=== PATIENT | female | born 1935 | race Caucasian/White ===

== ENCOUNTER 2016-10-09 11:22 | Inpatient (IN) | payer MEDICARE ==
[2016-10-09] VITALS (7 sets, daily range): BP systolic 145–174; BP diastolic 74–86
[~2016-10-09] VITALS: Ht 152 cm; Wt 75.0 kg
[~2016-10-09 11:22] MED LIST: ASPIRIN81 MG PO; ATENOLOL25 MG PO; CALCIUM WITH D1 CTB PO; CALCIUM600 M1 PO; CLARITIN10 MG; DOXYCYCLINE100 M3; FISH OIL 10001000 MG; FLAXSEED OIL1 CAP PO; FLONASE0.05 MG/AC; IMDUR SA30 MG PO; ISOSORBIDE30 MG PO; LOVENOX80 MG/0.8 SC; MACROBID100 M1 PO; NEURONTIN300 MG PO; OCEAN NASAL SPR45 ML; OXYCODONE HCL30 MG PO; OXYCODONE HCL5 MG PO; PERCOCET 325 MG1 TA6 PO; PRILOSEC20 M1 PO; TEMAZEPAM15 MG PO; TENORMIN25 MG PO; TRAMADOL50 MG; ULTRAM50 MG PO; VITAMIN D2000 IU PO; XARE15TA PO; ZOCOR5 MG PO
[2016-10-09 12:00] LABS: BASO % 0.4 % (0.0-1.0); EOS # 0.2 10*3/uL (0.0-0.4); EOS % 2.6 % (1.0-4.0); HEMATOCRIT 45.4 % (37.0-47.0); HEMOGLOBIN 14.6 g/dl (12.0-16.0); LYMPH # 1.8 10*3/uL (1.3-4.4); LYMPH % 23.8 % (27.0-41.0); MEAN CELL VOLUME 93.6 fl (81.0-99.0); MEAN CORPUSCULAR HGB 30.1 pg (27.0-31.0); MEAN CORPUSCULAR HGB CONC 32.2 g/dl (33.0-37.0); MONO # 0.6 10*3/uL (0.1-1.0); MONO % 7.6 % (3.0-9.0); NEUT % 65.2 % (47.0-73.0); PLATELET COUNT AUTOMATED 168 10*3/uL (130-400); RED BLOOD COUNT 4.85 10*6/uL (4.10-5.10); RED CELL DISTRI WIDTH 14.1 % (0-14.5); WHITE BLOOD COUNT 7.7 10*3/uL (4.8-10.8)
[2016-10-09 12:09] LABS: INTERNATIONAL NORM RATIO 1.2 (2.0-3.5); PROTHROMBIN TIME 12.6 SECONDS (9.0-12.4)
[2016-10-09 12:30] LABS: C-REACTIVE PROTEIN 1.55 MG/DL (0-0.3); TROPONIN I < 0.015 ng/ml (<0.045)
[2016-10-09 13:03] LABS: ALBUMIN 3.4 gm/dl (3.1-4.5); ALKALINE PHOSPHATASE 114 U/L (45-117); BILIRUBIN, TOTAL 0.5 mg/dl (0.2-1.0); BUN 6 mg/dl (7-24); CARBON DIOXIDE 29 mmol/L (21-32); CHLORIDE 104 mmol/L (98-107); EST GLOM FILT AFRICAN AMERICAN > 60 ml/min; GLUCOSE 98 mg/dL (65-99); MAGNESIUM 2.3 mg/dL (1.5-2.1); POTASSIUM 3.7 mmol/L (3.5-5.1); SGOT/AST 13 IU/L (3-35); SGPT/ALT 12 U/L (12-78); SODIUM 142 mmol/L (136-145); TOTAL PROTEIN 6.5 gm/dL (6.4-8.2)
[2016-10-09] MEDS ORDERED: SINGULAIR10 M1 PO (15:37)
[2016-10-09] MEDS ORDERED: LASIX20 MG PO (15:37)
[2016-10-09] MEDS ORDERED: FLUTICASON0.05 MG/AC NAS (15:38)
[2016-10-09] MEDS ORDERED: Meclizine25 MG PO (15:39)
[2016-10-09] MEDS ORDERED: SIMVASTATIN40 MG PO (18:02)
[2016-10-10] VITALS: BP 134/61
[2016-10-10 06:37] LABS: BASO % 0.2 % (0.0-1.0); EOS # 0.3 10*3/uL (0.0-0.4); EOS % 3.1 % (1.0-4.0); HEMATOCRIT 44.2 % (37.0-47.0); HEMOGLOBIN 13.9 g/dl (12.0-16.0); LYMPH # 2.3 10*3/uL (1.3-4.4); LYMPH % 26.6 % (27.0-41.0); MEAN CELL VOLUME 94.6 fl (81.0-99.0); MEAN CORPUSCULAR HGB 29.8 pg (27.0-31.0); MEAN CORPUSCULAR HGB CONC 31.4 g/dl (33.0-37.0); MEAN PLATELET VOLUME 10.1 fl (9.6-12.3); MONO # 0.7 10*3/uL (0.1-1.0); MONO % 8.1 % (3.0-9.0); NEUT # 5.2 10*3/uL (2.3-7.9); NEUT % 61.6 % (47.0-73.0); PLATELET COUNT AUTOMATED 165 10*3/uL (130-400); RED BLOOD COUNT 4.67 10*6/uL (4.10-5.10); RED CELL DISTRI WIDTH 14.1 % (0-14.5); WHITE BLOOD COUNT 8.5 10*3/uL (4.8-10.8)
[2016-10-10 07:13] LABS: CHLORIDE 106 mmol/L (98-107); INTERNATIONAL NORM RATIO 1.2 (2.0-3.5); POTASSIUM 3.7 mmol/L (3.5-5.1); PROTHROMBIN TIME 13.1 SECONDS (9.0-12.4); SODIUM 144 mmol/L (136-145)
[2016-10-10 07:26] LABS: ALBUMIN 3.3 gm/dl (3.1-4.5); ALKALINE PHOSPHATASE 105 U/L (45-117); BILIRUBIN, TOTAL 0.6 mg/dl (0.2-1.0); BUN 5 mg/dl (7-24); CARBON DIOXIDE 31 mmol/L (21-32); CHOLESTEROL 153 mg/dL (<200); EST GLOM FILT AFRICAN AMERICAN > 60 ml/min; FREE T4 1.33 ng/dl (0.76-1.46); GLUCOSE 82 mg/dL (65-99); HDL CHOLESTEROL 77 mg/dl (40-60); LDL CHOLESTEROL 58 mg/dL (9-159); MAGNESIUM 2.4 mg/dL (1.5-2.1); PHOSPHOROUS 3.2 mg/dL (2.5-4.9); SGOT/AST 13 IU/L (3-35); SGPT/ALT 10 U/L (12-78); TOTAL PROTEIN 6.3 gm/dL (6.4-8.2); TRIGLYCERIDES 91 mg/dl (<150); VLDL CHOLESTEROL 18 mg/dL (6-40)
[2016-10-10 07:41] LABS: FOLIC ACID 11.65 ng/mL (>5.38); VITAMIN D, 25-HYDROXY 28.9 ng/mL (30-100)
[2016-10-10 08:00] VITALS: BP 130/56
[2016-10-10 12:00] VITALS: BP 127/61
== END 2016-10-10 16:08 | disposition home or self-care (01) | DRG 392 ==
LOC: ED 11:22 → EDHOLD 13:19 → 5E 13:19
PROVIDERS: Emergency Medicine; Internal Medicine
DX: K21.9 Gastro-esophageal reflux disease without esophagitis (principal); I10 Essential (primary) hypertension; K57.30 Diverticulosis of large intestine without perforation or abscess without bleeding; I71.4 Abdominal aortic aneurysm, without rupture; K44.9 Diaphragmatic hernia without obstruction or gangrene; I25.10 Atherosclerotic heart disease of native coronary artery without angina pectoris; E78.5 Hyperlipidemia, unspecified; M81.0 Age-related osteoporosis without current pathological fracture; Z90.49 Acquired absence of other specified parts of digestive tract; Z95.5 Presence of coronary angioplasty implant and graft; Z90.710 Acquired absence of both cervix and uterus; Z82.49 Family history of ischemic heart disease and other diseases of the circulatory system; Z88.0 Allergy status to penicillin; Z79.82 Long term (current) use of aspirin; Z79.899 Other long term (current) drug therapy; Z79.1 Long term (current) use of non-steroidal anti-inflammatories (NSAID)

== ENCOUNTER 2017-07-31 20:59 | Inpatient (IN) | payer MEDICARE ==
[~2017-07-31] VITALS: Ht 142.2 cm; Wt 75.9 kg
[2017-07-31 20:59] VITALS: BP 163/80
[~2017-07-31 20:59] MED LIST changes: +FLUTICASON0.05 MG/AC NAS; +LASIX20 MG PO; +Meclizine25 MG PO; +SIMVASTATIN40 MG PO; +SINGULAIR10 M1 PO
[2017-07-31 21:24] LABS: BASO % 0.2 % (0.0-1.0); EOS # 0.2 10*3/uL (0.0-0.4); EOS % 2.1 % (1.0-4.0); HEMATOCRIT 46.3 % (37.0-47.0); HEMOGLOBIN 14.5 g/dl (12.0-16.0); LYMPH # 1.7 10*3/uL (1.3-4.4); LYMPH % 20.4 % (27.0-41.0); MEAN CELL VOLUME 93.9 fl (81.0-99.0); MEAN CORPUSCULAR HGB 29.4 pg (27.0-31.0); MEAN CORPUSCULAR HGB CONC 31.3 g/dl (33.0-37.0); MEAN PLATELET VOLUME 9.6 fl (9.6-12.3); MONO # 0.6 10*3/uL (0.1-1.0); MONO % 6.9 % (3.0-9.0); NEUT # 5.9 10*3/uL (2.3-7.9); NEUT % 70.2 % (47.0-73.0); PLATELET COUNT AUTOMATED 153 10*3/uL (130-400); RED BLOOD COUNT 4.93 10*6/uL (4.10-5.10); RED CELL DISTRI WIDTH 14.2 % (0-14.5); WHITE BLOOD COUNT 8.5 10*3/uL (4.8-10.8)
[2017-07-31 21:34] LABS: ACT PARTIAL THROMBO TIME 24.7 SECONDS (20.8-31.5); INTERNATIONAL NORM RATIO 1.2 (2.0-3.5)
[2017-07-31 21:46] LABS: ALBUMIN 3.6 gm/dl (3.1-4.5); ALKALINE PHOSPHATASE 138 U/L (45-117); BUN 9 mg/dl (7-24); CHLORIDE 102 mmol/L (98-107); CREATININE 0.59 mg/dL (0.55-1.02); SGOT/AST 17 IU/L (3-35); SGPT/ALT 13 U/L (12-78); SODIUM 140 mmol/L (136-145); TOTAL PROTEIN 7.2 gm/dL (6.4-8.2)
[2017-07-31 21:50] LABS: TROPONIN I < 0.015 ng/ml (<0.045)
[2017-07-31 22:00] VITALS: BP 162/72
[2017-07-31 23:05] VITALS: BP 154/80
[2017-08-01 01:40] VITALS: BP 146/70
[2017-08-01 03:13] LABS: BASO % 0.2 % (0.0-1.0); EOS % 0.2 % (1.0-4.0); HEMATOCRIT 42.6 % (37.0-47.0); HEMOGLOBIN 13.6 g/dl (12.0-16.0); LYMPH # 1.4 10*3/uL (1.3-4.4); LYMPH % 11.8 % (27.0-41.0); MEAN CELL VOLUME 92.6 fl (81.0-99.0); MEAN CORPUSCULAR HGB 29.6 pg (27.0-31.0); MEAN CORPUSCULAR HGB CONC 31.9 g/dl (33.0-37.0); MEAN PLATELET VOLUME 9.6 fl (9.6-12.3); MONO # 0.7 10*3/uL (0.1-1.0); MONO % 5.9 % (3.0-9.0); NEUT # 9.3 10*3/uL (2.3-7.9); NEUT % 81.5 % (47.0-73.0); PLATELET COUNT AUTOMATED 164 10*3/uL (130-400); RED CELL DISTRI WIDTH 14.3 % (0-14.5); WHITE BLOOD COUNT 11.4 10*3/uL (4.8-10.8)
[2017-08-01 03:24] LABS: ACT PARTIAL THROMBO TIME 25.2 SECONDS (20.8-31.5); INTERNATIONAL NORM RATIO 1.2 (2.0-3.5)
[2017-08-01 03:29] LABS: ALBUMIN 3.2 gm/dl (3.1-4.5); ALKALINE PHOSPHATASE 125 U/L (45-117); BUN 8 mg/dl (7-24); CHLORIDE 103 mmol/L (98-107); CHOLESTEROL 144 mg/dL (<200); CREATININE 0.51 mg/dL (0.55-1.02); HDL CHOLESTEROL 75 mg/dl (40-60); LDL CHOLESTEROL 56 mg/dL (9-159); PHOSPHOROUS 2.6 mg/dL (2.5-4.9); POTASSIUM 3.7 mmol/L (3.5-5.1); SGOT/AST 15 IU/L (3-35); SGPT/ALT 11 U/L (12-78); SODIUM 140 mmol/L (136-145); TOTAL PROTEIN 6.4 gm/dL (6.4-8.2); TRIGLYCERIDES 67 mg/dl (<150); VLDL CHOLESTEROL 13 mg/dL (6-40)
[2017-08-01 08:21] LABS: VITAMIN D, 25-HYDROXY 22.4 ng/mL (30-100)
[2017-08-01 12:00] VITALS: BP 155/81
[2017-08-01 16:00] VITALS: BP 135/83
[2017-08-01 20:00] VITALS: BP 158/71
[2017-08-02 00:47] VITALS: BP 150/75
[2017-08-02 07:59] LABS: BASO % 0.2 % (0.0-1.0); EOS % 0.5 % (1.0-4.0); HEMATOCRIT 43.6 % (37.0-47.0); HEMOGLOBIN 13.7 g/dl (12.0-16.0); LYMPH # 1.3 10*3/uL (1.3-4.4); LYMPH % 15.4 % (27.0-41.0); MEAN CELL VOLUME 93.8 fl (81.0-99.0); MEAN CORPUSCULAR HGB 29.5 pg (27.0-31.0); MEAN CORPUSCULAR HGB CONC 31.4 g/dl (33.0-37.0); MEAN PLATELET VOLUME 10.1 fl (9.6-12.3); MONO # 0.7 10*3/uL (0.1-1.0); NEUT # 6.3 10*3/uL (2.3-7.9); NEUT % 75.4 % (47.0-73.0); PLATELET COUNT AUTOMATED 164 10*3/uL (130-400); RED BLOOD COUNT 4.65 10*6/uL (4.10-5.10); RED CELL DISTRI WIDTH 14.6 % (0-14.5); WHITE BLOOD COUNT 8.4 10*3/uL (4.8-10.8)
[2017-08-02 08:00] VITALS: BP 141/63
[2017-08-02 08:23] LABS: ALBUMIN 3.3 gm/dl (3.1-4.5); ALKALINE PHOSPHATASE 122 U/L (45-117); BUN 5 mg/dl (7-24); CHLORIDE 107 mmol/L (98-107); CREATININE 0.44 mg/dL (0.55-1.02); LIPASE 78 U/L (73-393); SGOT/AST 20 IU/L (3-35); SGPT/ALT 12 U/L (12-78); SODIUM 143 mmol/L (136-145); TOTAL PROTEIN 6.5 gm/dL (6.4-8.2)
[2017-08-02 12:00] VITALS: BP 133/65
[2017-08-02 16:37] VITALS: BP 140/62
[2017-08-02 20:09] VITALS: BP 151/77
[2017-08-03] VITALS: BP 137/60
[2017-08-03 07:28] LABS: BASO % 0.1 % (0.0-1.0); EOS # 0.1 10*3/uL (0.0-0.4); HEMATOCRIT 41.8 % (37.0-47.0); HEMOGLOBIN 13.4 g/dl (12.0-16.0); LYMPH # 1.8 10*3/uL (1.3-4.4); LYMPH % 17.4 % (27.0-41.0); MEAN CELL VOLUME 92.9 fl (81.0-99.0); MEAN CORPUSCULAR HGB 29.8 pg (27.0-31.0); MEAN CORPUSCULAR HGB CONC 32.1 g/dl (33.0-37.0); MEAN PLATELET VOLUME 10.3 fl (9.6-12.3); MONO # 0.9 10*3/uL (0.1-1.0); MONO % 8.6 % (3.0-9.0); NEUT # 7.3 10*3/uL (2.3-7.9); NEUT % 72.3 % (47.0-73.0); PLATELET COUNT AUTOMATED 183 10*3/uL (130-400); RED CELL DISTRI WIDTH 14.6 % (0-14.5)
[2017-08-03 07:42] LABS: ALBUMIN 3.2 gm/dl (3.1-4.5); ALKALINE PHOSPHATASE 116 U/L (45-117); BUN 7 mg/dl (7-24); CHLORIDE 108 mmol/L (98-107); POTASSIUM 3.7 mmol/L (3.5-5.1); SGOT/AST 21 IU/L (3-35); SGPT/ALT 17 U/L (12-78); SODIUM 142 mmol/L (136-145); TOTAL PROTEIN 6.4 gm/dL (6.4-8.2)
[2017-08-03 08:41] VITALS: BP 181/78
[2017-08-03 12:22] VITALS: BP 134/68
[2017-08-03 16:53] VITALS: BP 115/65
[2017-08-03 20:02] VITALS: BP 117/72
[2017-08-04] VITALS: BP 134/76
[2017-08-04 08:00] VITALS: BP 133/69
[2017-08-04 08:15] LABS: BASO # 0.1 10*3/uL (0.0-0.1); BASO % 0.5 % (0.0-1.0); EOS # 0.6 10*3/uL (0.0-0.4); EOS % 5.3 % (1.0-4.0); HEMATOCRIT 43.8 % (37.0-47.0); HEMOGLOBIN 13.6 g/dl (12.0-16.0); LYMPH # 2.1 10*3/uL (1.3-4.4); LYMPH % 19.7 % (27.0-41.0); MEAN CELL VOLUME 93.4 fl (81.0-99.0); MEAN CORPUSCULAR HGB CONC 31.1 g/dl (33.0-37.0); MEAN PLATELET VOLUME 9.6 fl (9.6-12.3); MONO % 9.4 % (3.0-9.0); NEUT # 6.9 10*3/uL (2.3-7.9); NEUT % 64.6 % (47.0-73.0); PLATELET COUNT AUTOMATED 176 10*3/uL (130-400); RED BLOOD COUNT 4.69 10*6/uL (4.10-5.10); RED CELL DISTRI WIDTH 14.7 % (0-14.5); WHITE BLOOD COUNT 10.7 10*3/uL (4.8-10.8)
[2017-08-04 08:42] LABS: ALBUMIN 3.2 gm/dl (3.1-4.5); ALKALINE PHOSPHATASE 124 U/L (45-117); BUN 8 mg/dl (7-24); CHLORIDE 103 mmol/L (98-107); CREATININE 0.56 mg/dL (0.55-1.02); POTASSIUM 3.7 mmol/L (3.5-5.1); SGOT/AST 36 IU/L (3-35); SGPT/ALT 24 U/L (12-78); SODIUM 139 mmol/L (136-145); TOTAL PROTEIN 6.4 gm/dL (6.4-8.2)
[2017-08-04 08:47] LABS: INTERNATIONAL NORM RATIO 1.3 (2.0-3.5)
[2017-08-04 12:00] VITALS: BP 107/67
[2017-08-04] MEDS ORDERED: METOPROLOL SUCC25 M2 PO (13:26)
[2017-08-04] MEDS ORDERED: ZOFRAN ODT4 MG SL (13:26)
== END 2017-08-04 14:15 | disposition home health service (06) | DRG 445 ==
LOC: ED 20:59 → 4E 08-01 00:36 → EDHOLD 08-01 00:36 → 4E 08-01 00:47
PROVIDERS: Emergency Medicine; Internal Medicine; Student in an Organized Health Care Education/Training Program
DX: K81.0 Acute cholecystitis (principal); I16.1 Hypertensive emergency; E83.41 Hypermagnesemia; Z51.5 Encounter for palliative care; R07.89 Other chest pain; N28.1 Cyst of kidney, acquired; K83.8 Other specified diseases of biliary tract; I25.10 Atherosclerotic heart disease of native coronary artery without angina pectoris; R74.8 Abnormal levels of other serum enzymes; R00.0 Tachycardia, unspecified; R06.82 Tachypnea, not elsewhere classified; R73.03 Prediabetes; R73.9 Hyperglycemia, unspecified; E87.6 Hypokalemia; E66.9 Obesity, unspecified; I71.4 Abdominal aortic aneurysm, without rupture; K44.9 Diaphragmatic hernia without obstruction or gangrene; I10 Essential (primary) hypertension; G89.29 Other chronic pain; M54.9 Dorsalgia, unspecified; E78.5 Hyperlipidemia, unspecified; K57.30 Diverticulosis of large intestine without perforation or abscess without bleeding; K21.9 Gastro-esophageal reflux disease without esophagitis; M81.0 Age-related osteoporosis without current pathological fracture; K59.03 Drug induced constipation; Z68.37 Body mass index [BMI] 37.0-37.9, adult; T40.605A Adverse effect of unspecified narcotics, initial encounter; Y92.89 Other specified places as the place of occurrence of the external cause; Z95.5 Presence of coronary angioplasty implant and graft; Z79.51 Long term (current) use of inhaled steroids; Z79.82 Long term (current) use of aspirin; Z86.718 Personal history of other venous thrombosis and embolism; Z79.899 Other long term (current) drug therapy; Z90.49 Acquired absence of other specified parts of digestive tract; Z90.710 Acquired absence of both cervix and uterus; Z88.0 Allergy status to penicillin; Z82.49 Family history of ischemic heart disease and other diseases of the circulatory system